=== PATIENT | female | born 1990 | race Caucasian/White ===

== ENCOUNTER 2017-11-27 08:00 | Outpatient (CLI) | payer OTHER ==
[2017-11-27 14:52] LABS: MUDS CUTOFF CONCENTRATIONS CUTOFF CONC BELOW:
[2017-11-27 15:16] LABS: AMPHETAMINE SCREEN,URINE NEGATIVE (NEGATIVE); BENZODIAZEPINES SCREEN, URINE NEGATIVE (NEGATIVE); COCAINE SCREEN URINE NEGATIVE (NEGATIVE); METHADONE SCREEN, URINE NEGATIVE (NEGATIVE); METHAMPHETAMINES SCREEN, URINE NEGATIVE (NEGATIVE); OPIATE SCREEN, URINE NEGATIVE (NEGATIVE); OXYCODONE SCREEN, URINE NEGATIVE (NEGATIVE); PROPOXYPHENE SCREEN, URINE NEGATIVE (NEGATIVE); TRICYCLIC ANTIDEPRESSANT,URINE NEGATIVE (NEGATIVE)
== END 2017-11-27 08:01 | disposition home or self-care (01) ==
LOC: LAB.R 08:00
PROVIDERS: ATTEND Obstetrics & Gynecology
DX: Z36.9 Encounter for antenatal screening, unspecified (principal)
CPT/HCPCS: 80306

== ENCOUNTER 2017-12-09 22:17 | Emergency (ER) | payer OTHER ==
--- NOTE | 2017-12-09 22:42 | ED Physician Documentation ---
History of Present Illness - Stated complaint Stated Complaint: FEMALE /8 WKS - Chief complaint Chief Complaint: Abd Pain - History obtained from History obtained from: Patient - Additonal information Additional information: 27-year-old female presents the emergency department with complaints of vaginal bleeding which developed this evening. The patient currently is 8 weeks . The patient's had light spotting recently and today had an episode of bright red bleeding. The bleeding subsequently has resolved. The patient denies abdominal pain. Symptoms are described as moderate. No other associated symptoms. No triggering factors. No relieving factors. No other associated symptoms. Review of Systems Constitutional: denies: Fever, Chills Eyes: denies: Discharge Ears: denies: Ear pain Nose: denies: Congestion Throat: denies: Sore throat Cardiac: denies: Chest pain / pressure Respiratory: denies: Cough GI: denies: Abdominal Pain : reports: Vaginal bleeding Skin: denies: Rash Musculoskeletal: denies: Neck pain Neurologic: denies: Generalized weakness Immunocompromised: denies: Chemotherapy PD PAST MEDICAL HISTORY - Present Medications Home Medications: Ambulatory Orders Medication Instructions Recorded Confirmed Pnv95/Ferrous Fumarate/FA 1 each PO 12/09/17 [ Formula] - Allergies Allergies/Adverse Reactions: Allergies Allergy/AdvReac Type Severity Reaction Status Date / Time No Known Drug Allergies Allergy Verified 12/09/17 22:25 PD ED PE NORMAL - General General: Alert and oriented X 3, No acute distress - HEENT HEENT: Atraumatic, PERRL, EOMI, Ears normal - Cardiac Cardiac: RRR - Respiratory Respiratory: No respiratory distress, Clear bilaterally - Abdomen Abdomen: Soft, Non tender, Non distended - Derm Derm: Normal color - Extremities Extremities: No deformity - Neuro Neuro: Alert and oriented X 3, Normal speech - Psych Psych: Normal affect Results - Vitals Vitals: Vital Signs - 24 hr 12/09/17 22:23 Temperature 37.1 C Heart Rate 75 Respiratory 16 Rate Blood Pressure 132/84 H O2 Saturation 100 Oxygen O2 Source Room air - Labs Labs: Laboratory Tests 12/09/17 12/09/17 12/09/17 22:28 22:45 22:45 WBC 9.8 RBC 4.95 Hgb 14.4 Hct 41.7 MCV 84.3 MCH 29.2 MCHC 34.6 RDW 13.0 Plt Count 244 MPV 6.4 L Neut # (Auto) 4.9 Lymph # (Auto) 3.6 H Cataño # (Auto) 0.9 Eos # (Auto) 0.2 Baso # (Auto) 0.1 Absolute Nucleated RBC 0.01 Nucleated RBC % 0.1 Sodium 137 Potassium 3.4 L Chloride 103 Carbon Dioxide 24 Anion Gap 10.0 BUN 13 Creatinine 0.7 Estimated GFR (MDRD) 99 Glucose 91 Calcium 9.4 Magnesium 2.0 Total Bilirubin 0.4 AST 25 ALT 18 Alkaline Phosphatase 79 Total Protein 7.7 Albumin 4.5 Globulin 3.2 Albumin/Globulin Ratio 1.4 Lipase 42 HCG, Quant Urine Color YELLOW Urine Clarity CLEAR Urine pH 6.0 Ur Specific [place] <=1.005 Urine Protein NEGATIVE Urine Glucose (UA) NEGATIVE Urine Ketones NEGATIVE Urine Occult Blood LARGE H Urine Nitrite NEGATIVE Urine Bilirubin NEGATIVE Urine Urobilinogen 0.2 (NORMAL) Ur Leukocyte Esterase NEGATIVE Urine RBC 0-5 Urine WBC 0-3 Ur Squamous Epith Cells FEW Squamous Urine Bacteria None Seen Ur Microscopic Review INDICATED Urine Culture Comments NOT INDICATED 12/09/17 22:45 WBC RBC Hgb Hct MCV MCH MCHC RDW Plt Count MPV Neut # (Auto) Lymph # (Auto) Cataño # (Auto) Eos # (Auto) Baso # (Auto) Absolute Nucleated RBC Nucleated RBC % Sodium Potassium Chloride Carbon Dioxide Anion Gap BUN Creatinine Estimated GFR (MDRD) Glucose Calcium Magnesium Total Bilirubin AST ALT Alkaline Phosphatase Total Protein Albumin Globulin Albumin/Globulin Ratio Lipase HCG, Quant 21958.00 Urine Color Urine Clarity Urine pH Ur Specific [place] Urine Protein Urine Glucose (UA) Urine Ketones Urine Occult Blood Urine Nitrite Urine Bilirubin Urine Urobilinogen Ur Leukocyte Esterase Urine RBC Urine WBC Ur Squamous Epith Cells Urine Bacteria Ur Microscopic Review Urine Culture Comments - Rads (name of study) OB first trimester ultrasound Radiology: Final report received (Impression: Intrauterine gestational sac with pole present. Absent heart rate motion and the fetus is measuring more than 1 week smaller than expected by report of outside ultrasound. Compatible with intrauterine demise and missed . Leila- gestational hemorrhage) PD MEDICAL DECISION MAKING - ED course ED course: I discussed the case with the on-call EXTRACTION SUPERVISOR Dr. Henao, he recommends outpatient follow-up and attempting a natural progression of a spontaneous . He recommends close follow-up in 2-3 days for reevaluation. On reevaluation the patient is resting comfortably, and currently is not having any lower abdominal pain and is only had slight be bleeding. I discussed with the patient the findings and plan. The patient understands and agrees. The patient has a OB/ SOCIAL SERVICES and will follow up in the next 2-3 days. I discussed warning signs and recommended returning to the emergency department immediately for any worsening or any concerns. - Sepsis Event Vital Signs: Vital Signs - 24 hr 12/09/17 22:23 Temperature 37.1 C Heart Rate 75 Respiratory 16 Rate Blood Pressure 132/84 H O2 Saturation 100 Oxygen O2 Source Room air Departure - Departure Disposition: 01 Home, Self Care Clinical Impression: Missed with demise before 20 completed weeks of gestation Condition: Good Instructions: ED Miscarriage Incom, ED Miscarriage Inevitable Comments: Please follow-up with your EXTRACTION SUPERVISOR in 2-3 days for recheck. Please return to the emergency department immediately for worsening symptoms or new concerns
[2017-12-09 22:49] LABS: BASOPHILS # (AUTO) 0.1 10^3/uL (0.0-0.1); BASOPHILS % (AUTO) 0.6 %; EOSINOPHILS # (AUTO) 0.2 10^3/uL (0.0-0.7); EOSINOPHILS % (AUTO) 2.3 %; HGB - HEMOGLOBIN 14.4 g/dL (12.0-16.0); LYMPHOCYTES # (AUTO) 3.6 10^3/uL (1.5-3.5); LYMPHOCYTES % (AUTO) 37.2 %; MEAN CORPUSCULAR HEMOGLOBIN 29.2 pg (27.0-31.0); MEAN CORPUSCULAR HGB CONC 34.6 g/dL (32.0-36.0); MEAN CORPUSCULAR VOLUME 84.3 fL (81.0-99.0); MEAN PLATELET VOLUME 6.4 fL (7.9-10.8); MONOCYTES # (AUTO) 0.9 10^3/uL (0.0-1.0); MONOCYTES % (AUTO) 9.3 %; NEUTROPHILS # (AUTO) 4.9 10^3/uL (1.5-6.6); NEUTROPHILS % (AUTO) 50.6 %; PLT - PLATELET COUNT 244 10^3/uL (130-450); RED BLOOD COUNT 4.95 10^6/uL (4.20-5.40); WHITE BLOOD COUNT 9.8 x10^3/uL (4.8-10.8)
[2017-12-09 22:50] LABS: BILIRUBIN,URINE NEGATIVE (NEGATIVE); GLUCOSE, URINE (UA) NEGATIVE (NEGATIVE); KETONES,URINE (UA) NEGATIVE (NEGATIVE); LEUKOCYTE ESTERASE, URINE NEGATIVE (NEGATIVE); NITRITE,URINE NEGATIVE (NEGATIVE); OCCULT BLOOD,URINE LARGE (NEGATIVE); PROTEIN,URINE NEGATIVE (NEGATIVE); UROBILINOGEN,URINE 0.2 (NORMAL) E.U./dL (NORMAL)
[2017-12-09 22:52] LABS: CLARITY,URINE CLEAR (CLEAR)
[2017-12-09 22:59] LABS: BACTERIA,URINE None Seen /HPF (None Seen); RBC,URINE 0-5 /HPF (0-5); SQUAMOUS EPITHELIAL CELL,UR FEW Squamous (<= Few)
[2017-12-09 23:00] LABS: ALBUMIN 4.5 g/dL (3.2-5.5); ALBUMIN/GLOBULIN RATIO 1.4 (1.0-2.2); BILIRUBIN,TOTAL 0.4 mg/dL (0.2-1.0); CALCIUM 9.4 mg/dL (8.5-10.3); CREATININE 0.7 mg/dL (0.4-1.0); TOTAL PROTEIN 7.7 g/dL (6.7-8.2)
--- NOTE | 2017-12-10 00:10 | Ultrasound Report ---
Procedure Date: 12/09/2017 Accession Number: [id number] / [id number] Procedure: US - OB First Trimester CPT Code: FULL RESULT: EXAM: FIRST TRIMESTER OBSTETRIC ULTRASOUND (Less than 11 weeks) EXAM DATE: 12/09/2017 10:53 PM. CLINICAL HISTORY: with pain. LMP: Unknown. COMPARISONS: None. TECHNIQUE: Transabdominal and transvaginal ultrasound examination with static image documentation. CLINICAL DATES: EGA 8 weeks 3 days with FARHAD 07/18/2018 based on patient's report of office ultrasound from 11/28/2017. ASSESSMENT: Gestational Sac: Single intrauterine. Mean gestational sac diameter: 25 mm = 7 weeks 1 day. Embryo: CRL (crown-rump length) 10.4 mm = 7 weeks 1 day. Cardiac activity: Absent. Yolk sac: 3 mm. Amniotic fluid: Not accurately assessed at this gestational age. Early placenta: Not visible at this gestational age. Other: Hemorrhage along the inferior margin of the gestational sac.. MATERNAL STRUCTURES: Uterus: Anteverted/Retroverted. Unremarkable. Cervix: Closed. Right Ovary/Adnexa: Right ovary not confidently identified. No right adnexal mass seen.. Left Ovary/Adnexa: Unremarkable. The ovary measures 1.6 x 1.5 x 1.1 cm, volume 1 cc. Free Fluid: None. Other: None. IMPRESSION: Intrauterine gestational sac, with pole present. Absent heart motion, and the fetus is measuring more than 1 week smaller than expected by report of outside ultrasound, compatible with intrauterine demise and missed . Perigestational hemorrhage. Critical result: Results called to Dr. Newman in the emergency Department on 12/10/2017 at 12:05 AM. VANESSA
[2017-12-10 00:44] VITALS: BP 128/80
--- NOTE | 2017-12-11 17:33 | HISTORY & PHYSICAL EXAMINATION ---
DATE OF SERVICE: 12/09/2017 Physician: Adrian Marie MD DIAGNOSES 1. Early embryonic wastage at 8 weeks. 2. Threatened /missed . HISTORY OF PRESENT ILLNESS: Patient is a 27-year-old 2, para 0-0-1-0 who on her initial obstetrics check was noted to have brown/pinkish discharge, but no cramping. She had none of the usual signs of such as breast tenderness, nausea, or vomiting. Formal ultrasound was accomplished that showed a gestational sac with a pole, but no heart tones. She has no fevers, chills or recent symptoms or recent illness. Seven years ago, she had an abnormal Pap smear that resolved spontaneously. There is a prior history of SAB. Current Pap smear is completely normal. Last menstrual period is 09/28/2017. PAST MEDICAL HISTORY: No cardiovascular or gastrointestinal disease, no chronic disease, no STI history. ALLERGIES: MEDICATIONS: vitamins. REVIEW OF SYSTEMS CONSTITUTIONAL: Negative. HEENT: Negative. CARDIOVASCULAR: Negative. PULMONARY: Negative. GASTROINTESTINAL: Negative. GENITOURINARY: Reference HPI. MUSCULOSKELETAL: Negative. DERMATOLOGIC: Negative. BREASTS: Negative. NEUROLOGIC: Negative. PSYCHIATRIC: Negative. SOCIAL HISTORY: Currently . in active duty [employer]. No drug, tobacco, or alcohol use. Regular exercise. Works as a storehouse clerk. FAMILY HISTORY: MOTOR VEHICLE ESCORT DRIVER malignancy. No CVA or OH history. PHYSICAL EXAMINATION GENERAL: Well groomed, pleasant. VITAL SIGNS: Weight 147, height 65, BMI 24.5, blood pressure 116/76. HEENT: Supple neck. Dentition in good repair. No thyromegaly. CARDIAC: Regular. No murmur, no gallop. LUNGS: No wheeze. Clear lungs bilaterally. ABDOMEN: Nondistended. No tenderness noted. GENITOURINARY: Normal excretion. No vulvar lesions. VAGINA: Scant brownish discharge/old blood. CERVIX: No cervical motion tenderness. Os is stenotic and closed; laminaria small, was uneventfully placed. UTERUS: Gravid 8-week size. ADNEXA: Nontender. Normal size ovaries. EXTREMITIES: Nonedematous. NEUROLOGIC: Grossly intact. SKIN: No rash or lesions. DIAGNOSTIC DATA: Office ultrasound: Gestational sac found but no heart tones. Admission labs pending. ASSESSMENT: Patient has had an 8-week embryonic wastage and is currently passing bloody discharge. After a long discussion, patient has chosen dilatation and curettage for its expediency. Risks (bleeding, transfusion, infection, perforation and anesthesia reaction) were explained. She accepts these risks. Alternative courses of action including expectant management and misoprostol induction were discussed, but rejected. PLAN: Patient is scheduled for dilatation and curettage mid morning of the . TD: 12/11/2017 14:09 KASANDRA
== END 2017-12-10 00:42 | disposition home or self-care (01) ==
LOC: ED 22:17
DX: O02.1 Missed abortion (principal); Z3A.08 8 weeks gestation of pregnancy
CPT/HCPCS: 36415; 76801; 76817; 80053; 81001; 81003; 83690; 83735; 84702; 84703; 85025; 86850; 86900; 86901; 87086; 99283; 99284

== ENCOUNTER 2017-12-11 09:57 | Outpatient (CLI) | payer OTHER ==
[2017-12-11 10:50] LABS: BASOPHILS # (AUTO) 0.1 10^3/uL (0.0-0.1); BASOPHILS % (AUTO) 0.7 %; EOSINOPHILS # (AUTO) 0.1 10^3/uL (0.0-0.7); EOSINOPHILS % (AUTO) 1.1 %; HGB - HEMOGLOBIN 15.1 g/dL (12.0-16.0); LYMPHOCYTES % (AUTO) 24.3 %; MEAN CORPUSCULAR HEMOGLOBIN 28.9 pg (27.0-31.0); MEAN CORPUSCULAR HGB CONC 34.4 g/dL (32.0-36.0); MEAN CORPUSCULAR VOLUME 84.2 fL (81.0-99.0); MEAN PLATELET VOLUME 6.5 fL (7.9-10.8); MONOCYTES # (AUTO) 0.6 10^3/uL (0.0-1.0); MONOCYTES % (AUTO) 7.9 %; NEUTROPHILS # (AUTO) 5.4 10^3/uL (1.5-6.6); PLT - PLATELET COUNT 225 10^3/uL (130-450); RED BLOOD COUNT 5.21 10^6/uL (4.20-5.40); RED CELL DISTRIBUTION WIDTH 13.1 % (12.0-15.0); WHITE BLOOD COUNT 8.2 x10^3/uL (4.8-10.8)
== END 2017-12-11 09:58 | disposition home or self-care (01) ==
LOC: LAB 09:57
PROVIDERS: ATTEND Obstetrics & Gynecology
DX: Z01.812 Encounter for preprocedural laboratory examination (principal); O03.4 Incomplete spontaneous abortion without complication
CPT/HCPCS: 36415; 85025; 86850; 86900; 86901

== ENCOUNTER 2017-12-12 08:46 | Day surgery (SDC) | payer OTHER ==
[2017-12-12] MEDS ORDERED: LACTATED RINGERS 1,000 ML IV ONE (08:58)
--- NOTE | 2017-12-12 09:33 | ANESTHESIA ---
Pre-Anesthesia VS, & Labs - Diagnosis Incomplete AB - Procedure D&C Vital Signs: Temp Pulse Resp BP Pulse Ox 37.0 C 16 122/94 H 100 12/12/17 09:05 12/12/17 09:05 12/12/17 09:05 12/12/17 09:05 Height 5 ft 6 in Weight (kg) 67 kg Body Mass Index 23.3 - NPO >8 hours - Is Patient ?: Yes ( demise determined by US on 12/09/17) - Lab Results Lab results reviewed: Yes Home Medications and Allergies Home Medications: Ambulatory Orders Medication Instructions Recorded Confirmed Pnv95/Ferrous Fumarate/FA 1 each PO 12/09/17 [ Formula] Allergies/Adverse Reactions: Allergies Allergy/AdvReac Type Severity Reaction Status Date / Time No Known Drug Allergies Allergy Verified 12/09/17 22:25 Anes History & Medical History - Anesthetic History Anesthesia Complications: reports: No previous complications Family history of Anesthesia Complications: Denies Family history of Malignant Hyperthermia: Denies - Airway/Dental Dental: WNL Mallampati classification: I - Medical History Cardiovascular: reports: None Pulmonary: reports: None Gastrointestinal: reports: None Urinary: reports: None Musculoskeletal: reports: None Endocrine/Autoimmune: reports: None Skin: reports: None Smoking Status: Never smoker - Surgical History Gynecologic: Dilation and currettage Exam General: Alert, Oriented x3 Respiratory: Lungs clear, Normal breath sounds, No respiratory distress Cardiovascular: Regular rate Mental/Cognitive Status: Alert/Oriented X3 Cognitive Status: Within normal limits Plan Anesthesia Type: General Consent for Procedure(s) Verified and Reviewed: Yes Code Status: Attempt Resuscitation ASA classification: 1-Healthy patient Is this case an emergency?: No
--- NOTE | 2017-12-12 09:40 | OPERATIVE REPORT ---
Operative Report - General Planned Procedure: Dilatation and curettage possibly with suction Pre-Op Diagnosis: Spontaneous early wastage; Procedure Performed: Dilatation and curettage Post Op Diagnosis: Same as above - Procedure Note Primary Surgeon: Adrian Marie MD, FACOG Anesthesia Provider: Elliot Lowe, certified nurse classics professor Anesthesia Technique: General ET tube Pathology: Conceptual products sent to pathology IV Fluids (mL): 500 Estimated Blood Loss (mL): 20 Urine Output (mL): 100 (straight cath) Drain/Tube Type: Other (None, patient straight cathed during procedure) Complications: None
[2017-12-12] MEDS ORDERED: fentaNYL 100 MCG/2 ML VIAL IVP ONE (10:15)
[2017-12-12] MEDS ORDERED: DEXAMETHASONE 4 MG/ML VIAL IVP ONE (10:15)
[2017-12-12] MEDS ORDERED: PROPOFOL 200 MG/20 ML VIAL IVP ONE (10:15)
[2017-12-12] MEDS ORDERED: ONDANSETRON 4 MG/2 ML VIAL IVP ONE (10:15)
[2017-12-12] MEDS ORDERED: MIDAZOLAM 2 MG/2 ML VIAL IVP ONE (10:15)
[2017-12-12] MEDS ORDERED: KETOROLAC 30 MG/ML VIAL IVP ONE (10:15)
[2017-12-12] MEDS ORDERED: LIDOCAINE-MPF 2% 5 ML VIAL IM ONE (10:15)
[2017-12-12 12:03] VITALS: BP 118/88
--- NOTE | 2017-12-12 12:08 | OPERATIVE REPORT ---
DATE OF SERVICE: 12/12/2017 Physician: Adrian Marie MD PREOPERATIVE DIAGNOSIS: Spontaneous early embryonic wastage (8 weeks); missed ). POSTOPERATIVE DIAGNOSIS: Spontaneous early embryonic wastage (8 weeks); missed . PROCEDURE PERFORMED: Dilatation and curettage, with and without suction. SURGEON: Adrian Marie MD, FACOG, FICS. ANESTHESIA: Elliot Lowe CRNA. ANESTHESIA TYPE: General, ET tube placed. PATHOLOGY: Conceptual products sent for analysis. FLUIDS: 500. ESTIMATED BLOOD LOSS: 20. URINE OUTPUT: 100, patient straight-catheterized of clear urine at the beginning of the case. DRAINS: None. COMPLICATIONS: None. FINDINGS 1. Exam of the external genitalia finds no lesions. Vagina is without gross lesions. Cervix has no cervicitis or gross lesions. Cervical dilation had changed from nil to 4-5 mm with the effect of la minaria; laminaria removed. 2. Uterus about 8-week size, soft, retroverted, retroflexed, uterine sounding 8 cm preop and postop. 3. Adnexa, no masses felt. Normal size ovaries. TECHNIQUE: Prior to the procedure, I met the patient and her in the preop waiting room. We reviewed the indications, mechanics, risks (bleeding, infection, transfusion, perforation, and incomp lete evacuation). After discussion, she is certain that she desires to move forward with the procedu re. DESCRIPTION OF PROCEDURE: The patient was placed on the operating table in the supine position. She was uneventfully induced and intubated. She was then moved to the low dorsal lithotomy position in [facility]. She was prepped and draped in a customary sterile fashion. The laminaria was rem cassia. The patient was straight-catheterized of all urine. A timeout briefing was done per protocol. Clamshell speculum was then used to visualize the cervix. The anterior cervical lip was grasped with a single-tooth tenaculum. The patient was sounded to determine endocervical axis. The cervix was t hen gently dilated with serial application of Hegar probes to #10. Suction curette was calibrated, and vacuum activated. The suction curette was introduced into the ut erine cavity, and manipulated in a systematic fashion. The expected amount of uterine products was o btained. The suction curette was removed. Next, a medium sized sharp curette was introduced, and it was confirmed that the uterine cavity was empty. Procedure was terminated. All instruments were removed from the vagina. The operative site was insp ected and found to be hemostatically secure. All sponge, needle and instrument counts were confirmed as correct. The patient was uneventfully awakened from general anesthesia and sent to the recovery. DISPOSITION: Patient blood type is O+, antibody screen negative. Therefore, RhoGAM will not be requ ired. The patient recovered and was sent home with complete warning sign and callback instructions. DISCHARGE MEDICATIONS 1. Motrin 600 mg q. 6 hours [id number]. 2. Continue vitamins. 3. The patient will call in if narcotic is required. FOLLOWUP: In two weeks. TD: 12/12/2017 11:03
== END 2017-12-12 08:47 | disposition home or self-care (01) ==
LOC: SDS 08:46
PROVIDERS: ATTEND Obstetrics & Gynecology
PROC: 10D17Z9 Manual Extraction of Products of Conception, Retained, Via Natural or Artificial Opening (ICD-10-PCS; principal; 2017-12-12 10:00)
DX: O02.1 Missed abortion (principal)
CPT/HCPCS: 59820; J7120

== ENCOUNTER 2018-09-13 08:58 | Outpatient (CLI) | payer OTHER ==
--- NOTE | 2018-09-14 17:06 | Ultrasound Report ---
Reason: TEST POSITIVE Procedure Date: 09/13/2018 Accession Number: [id number] / [id number] Procedure: US - OB First Trimester CPT Code: FULL RESULT: EXAM: FIRST TRIMESTER OBSTETRIC ULTRASOUND (Less than 11 weeks) EXAM DATE: 09/13/2018 09:30 AM. CLINICAL HISTORY: test positive. LMP: 07/19/2018. COMPARISONS: None. TECHNIQUE: Transabdominal ultrasound examination with static image documentation. CLINICAL DATES: EGA 8 weeks 0 days with FARHAD 04/25/2019 based on LMP. ASSESSMENT: Gestational Sac: Single intrauterine. Embryo: CRL (crown-rump length) 12 mm = 7 weeks 3 days with an FARHAD of 04/29/2019. Cardiac activity: 161 beats per minute. Yolk sac: 3 mm. Amniotic fluid: Not accurately assessed at this gestational age. Early placenta: Not visible at this gestational age. Other: No perigestational fluid collection demonstrated. MATERNAL STRUCTURES: Uterus: Anteverted. Unremarkable. Cervix: Closed. Right Ovary/Adnexa: The ovary measures 2.8 x 1.1 x 2.1 cm, volume 3.5 cc. Unremarkable. Left Ovary/Adnexa: The ovary measures 4.1 x 2.6 x 3.5 cm, volume 19.2 cc. 2 x 1.7 x 2.2 Cm complex left ovarian cyst with debris and mild peripheral flow. No mural nodules or thickened septations. Free Fluid: None. Other: None. IMPRESSION: 1. Single viable intrauterine at EGA 7 weeks 3 days with FARHAD 04/29/2019 based on crown-rump length, which is concordant with clinical dates. 2. Assigned dating is FARHAD 8 weeks 0 days based on LMP. 3. No subchorionic hemorrhage or other complication. 4. 2.2 cm complex left ovarian cyst most compatible with a corpus luteum. Otherwise, both ovaries and adnexa are normal. RADIA
== END 2018-09-13 08:59 | disposition home or self-care (01) ==
LOC: DI 08:58
PROVIDERS: ATTEND Nurse Practitioner Obstetrics & Gynecology
DX: Z32.01 Encounter for pregnancy test, result positive (principal); O34.81 Maternal care for other abnormalities of pelvic organs, first trimester; N83.292 Other ovarian cyst, left side; Z3A.01 Less than 8 weeks gestation of pregnancy
CPT/HCPCS: 76801

== ENCOUNTER 2018-10-01 08:00 | Outpatient (CLI) | payer OTHER ==
[2018-10-01 16:31] LABS: MUDS CUTOFF CONCENTRATIONS CUTOFF CONC BELOW:
[2018-10-01 16:59] LABS: AMPHETAMINE SCREEN,URINE NEGATIVE (NEGATIVE); BENZODIAZEPINES SCREEN, URINE NEGATIVE (NEGATIVE); COCAINE SCREEN URINE NEGATIVE (NEGATIVE); METHADONE SCREEN, URINE NEGATIVE (NEGATIVE); METHAMPHETAMINES SCREEN, URINE NEGATIVE (NEGATIVE); OPIATE SCREEN, URINE NEGATIVE (NEGATIVE); OXYCODONE SCREEN, URINE NEGATIVE (NEGATIVE); PROPOXYPHENE SCREEN, URINE NEGATIVE (NEGATIVE); TRICYCLIC ANTIDEPRESSANT,URINE NEGATIVE (NEGATIVE)
== END 2018-10-01 23:59 | disposition home or self-care (01) ==
LOC: LAB.R 08:00
PROVIDERS: ATTEND Registered Nurse
DX: Z36.89 Encounter for other specified antenatal screening (principal)
CPT/HCPCS: 80306

== ENCOUNTER 2018-10-01 09:49 | Outpatient (CLI) | payer OTHER ==
[2018-10-01 10:44] LABS: MUDS CUTOFF CONCENTRATIONS CUTOFF CONC BELOW:
[2018-10-01 11:05] LABS: AMPHETAMINE SCREEN,URINE NEGATIVE (NEGATIVE); BENZODIAZEPINES SCREEN, URINE NEGATIVE (NEGATIVE); COCAINE SCREEN URINE NEGATIVE (NEGATIVE); METHADONE SCREEN, URINE NEGATIVE (NEGATIVE); METHAMPHETAMINES SCREEN, URINE NEGATIVE (NEGATIVE); OPIATE SCREEN, URINE NEGATIVE (NEGATIVE); OXYCODONE SCREEN, URINE NEGATIVE (NEGATIVE); PROPOXYPHENE SCREEN, URINE NEGATIVE (NEGATIVE); TRICYCLIC ANTIDEPRESSANT,URINE NEGATIVE (NEGATIVE)
[2018-10-02 13:06] LABS: HIV AG/AB 4TH GEN NON-REACTIVE (NON-REACTIVE)
[2018-10-02 13:31] LABS: HEPATITIS C ANTIBODY NON-REACTIVE (NON-REACTIVE)
== END 2018-10-01 09:50 | disposition home or self-care (01) ==
LOC: LAB 09:49
PROVIDERS: ATTEND Registered Nurse
DX: Z36.89 Encounter for other specified antenatal screening (principal)
CPT/HCPCS: 36415; 80306; 86803; 87389

== ENCOUNTER 2018-12-05 08:21 | Outpatient (CLI) | payer OTHER ==
--- NOTE | 2018-12-06 16:33 | Ultrasound Report ---
Reason: ENCTR FOR OTHER SPECIFIED SCREENING Procedure Date: 12/05/2018 Accession Number: [id number] / [id number] Procedure: US - OB Detailed Eval CPT Code: FULL RESULT: EXAM: COMPLETE OBSTETRICAL ULTRASOUND EXAM DATE: 12/05/2018 10:25 AM. CLINICAL HISTORY: anatomic survey. COMPARISON: OB FIRST TRIMESTER 09/13/2018 9:12 AM. TECHNIQUE: Real-time sonographic evaluation of the fetus performed by the veterinarian laboratory animal care. Multiple field representative static images were saved for review. DATING: Established EGA 19 weeks, 6 days with FARHAD 12 [id number] based on first ultrasound. EGA weeks/days with FARHAD based on LMP/prior ultrasound/other. EGA 20 weeks, 3 days with FARHAD 04/21/2019 based on the current ultrasound. GENERAL EVALUATION Walker . Cardiac activity: 163 bpm. movement: Visualized. Presentation: Cephalic. Placenta: Anterior position. No evidence for previa. Umbilical cord: 3 vessel cord. Central placental cord origin. Amniotic fluid: Subjectively normal. MVP 3.2 cm. KAREY 11.1 cm. BIOMETRY Bi-Parietal Diameter (BPD): 4.8 cm, 20 weeks, 4 days Head Circumference (HC): 18 cm, 20 weeks, 3 days Abdominal Circumference (AC): 15.6 cm, 20 weeks, 5 days Femur Length (FL): 3.3 cm, 20 weeks, 1 day Estimated Weight: 356 g, 80th percentile for 19 weeks, 6 days. ANATOMY The intracranial structures, profile, face/nose/lips, spine, 4 chamber heart and outflow tracts, stomach, abdominal wall and cord insertion, diaphragm, kidneys, bladder, and extremities were visualized and demonstrate no abnormality. MATERNAL STRUCTURES Uterus: Unremarkable. Cervix: Long and closed. Transabdominal length 3.9 cm. Right ovary/adnexa: Unremarkable. Left ovary/adnexa: Unremarkable. Neither ovary was identified, the ovaries were presumably obscured by overlying bowel gas. Free fluid: None. IMPRESSION: 1. Walker live intrauterine with gestational age 19 weeks, 6 days based on first ultrasound. 2. Estimated weight at the 80th percentile is within expected limits for assigned dating. 3. Normal anatomic survey. No anatomic abnormalities are detected at this time. RADIA
== END 2018-12-05 08:22 | disposition home or self-care (01) ==
LOC: DI 08:21
PROVIDERS: ATTEND Nurse Practitioner Obstetrics & Gynecology
DX: Z36.89 Encounter for other specified antenatal screening (principal)
CPT/HCPCS: 76811

== ENCOUNTER 2018-12-20 10:49 | Outpatient (CLI) | payer OTHER ==
[2018-12-20 11:18] LABS: BASOPHILS % (AUTO) 0.3 %; EOSINOPHILS # (AUTO) 0.1 10^3/uL (0.0-0.7); EOSINOPHILS % (AUTO) 0.5 %; HGB - HEMOGLOBIN 12.6 g/dL (12.0-16.0); LYMPHOCYTES % (AUTO) 17.8 %; MEAN CORPUSCULAR HEMOGLOBIN 29.4 pg (27.0-31.0); MEAN CORPUSCULAR HGB CONC 34.2 g/dL (32.0-36.0); MEAN CORPUSCULAR VOLUME 85.8 fL (81.0-99.0); MEAN PLATELET VOLUME 8.7 fL (7.9-10.8); MONOCYTES # (AUTO) 0.7 10^3/uL (0.0-1.0); NEUTROPHILS # (AUTO) 8.3 10^3/uL (1.5-6.6); NEUTROPHILS % (AUTO) 74.5 %; PLT - PLATELET COUNT 209 10^3/uL (130-450); RED BLOOD COUNT 4.29 10^6/uL (4.20-5.40); RED CELL DISTRIBUTION WIDTH 13.3 % (12.0-15.0); WHITE BLOOD COUNT 11.2 x10^3/uL (4.8-10.8)
[2018-12-21 14:11] LABS: HEPATITIS B SURFACE ANTIGEN NON-REACTIVE (NON-REACTIVE)
[2018-12-23 14:51] LABS: HIV AG/AB 4TH GEN NON-REACTIVE (NON-REACTIVE)
== END 2018-12-20 10:50 | disposition home or self-care (01) ==
LOC: LAB 10:49
PROVIDERS: ATTEND Nurse Practitioner Obstetrics & Gynecology
DX: Z36.89 Encounter for other specified antenatal screening (principal)
CPT/HCPCS: 36415; 81599; 85025; 86592; 86762; 86850; 86900; 86901; 87340; 87389

== ENCOUNTER 2019-01-29 10:17 | Outpatient (CLI) | payer OTHER ==
[2019-01-29 11:26] LABS: HGB - HEMOGLOBIN 13.6 g/dL (12.0-16.0); MEAN CORPUSCULAR HEMOGLOBIN 29.1 pg (27.0-31.0); MEAN CORPUSCULAR HGB CONC 33.6 g/dL (32.0-36.0); MEAN CORPUSCULAR VOLUME 86.5 fL (81.0-99.0); MEAN PLATELET VOLUME 8.7 fL (7.9-10.8); RED BLOOD COUNT 4.68 10^6/uL (4.20-5.40); RED CELL DISTRIBUTION WIDTH 13.3 % (12.0-15.0); WHITE BLOOD COUNT 11.5 x10^3/uL (4.8-10.8)
== END 2019-01-29 10:18 | disposition home or self-care (01) ==
LOC: LAB 10:17
PROVIDERS: ATTEND Obstetrics & Gynecology
DX: Z36.89 Encounter for other specified antenatal screening (principal)
CPT/HCPCS: 36415; 82950; 85027; 86850

== ENCOUNTER 2019-04-02 08:00 | Outpatient (CLI) | payer OTHER ==
[2019-04-02 20:59] LABS: TRICHOMONAS VAGINALIS DNA NEGATIVE (NEGATIVE)
== END 2019-04-02 23:59 | disposition home or self-care (01) ==
LOC: LAB.R 08:00
PROVIDERS: ATTEND Nurse Practitioner Obstetrics & Gynecology
DX: Z36.85 Encounter for antenatal screening for Streptococcus B (principal)
CPT/HCPCS: 87491; 87591; 87661; 87797

== ENCOUNTER 2019-04-30 04:19 | Inpatient (IN) | payer OTHER ==
[2019-04-30] MEDS ORDERED: SODIUM CHLORIDE FLUSH 0.9% 10 ML SYRINGE IVP PRN ×2 (04:57→18:11)
[2019-04-30] MEDS ORDERED: fentaNYL 100 MCG/2 ML VIAL IVP PRN (04:57)
[2019-04-30] MEDS ORDERED: OXYTOCIN/DEXTROSE 5 % 30 UNIT/500 ML BAG IV ONE (05:14)
[2019-04-30 05:36] LABS: BASOPHILS # (AUTO) 0.1 10^3/uL (0.0-0.1); BASOPHILS % (AUTO) 0.4 %; EOSINOPHILS % (AUTO) 0.2 %; HGB - HEMOGLOBIN 13.1 g/dL (12.0-16.0); LYMPHOCYTES # (AUTO) 2.5 10^3/uL (1.5-3.5); LYMPHOCYTES % (AUTO) 14.6 %; MEAN CORPUSCULAR HEMOGLOBIN 28.5 pg (27.0-31.0); MEAN CORPUSCULAR HGB CONC 33.7 g/dL (32.0-36.0); MEAN CORPUSCULAR VOLUME 84.6 fL (81.0-99.0); MEAN PLATELET VOLUME 9.6 fL (7.9-10.8); MONOCYTES # (AUTO) 1.3 10^3/uL (0.0-1.0); MONOCYTES % (AUTO) 7.2 %; NEUTROPHILS # (AUTO) 13.4 10^3/uL (1.5-6.6); NEUTROPHILS % (AUTO) 76.9 %; PLT - PLATELET COUNT 239 10^3/uL (130-450); RED CELL DISTRIBUTION WIDTH 13.2 % (12.0-15.0); WHITE BLOOD COUNT 17.4 x10^3/uL (4.8-10.8)
[2019-04-30] MEDS ORDERED: OXYTOCIN/DEXTROSE 5 % 30 UNIT/500 ML BAG IV PRN (05:52)
[2019-04-30] MEDS ORDERED: miSOPROStoL 200 MCG TABLET ONE (08:24)
[2019-04-30] MEDS ORDERED: LIDOCAINE-MPF 1% 30 ML VIAL ONE (08:24)
[2019-04-30] MEDS: LACTATED RINGERS 1,000 ML IV SCH ×2 (08:30→13:51)
[2019-04-30 08:58] LABS: ALBUMIN 3.2 g/dL (3.2-5.5); ALBUMIN/GLOBULIN RATIO 0.9 (1.0-2.2); BILIRUBIN,TOTAL 0.5 mg/dL (0.2-1.0); CALCIUM 9.4 mg/dL (8.5-10.3); CREATININE 0.8 mg/dL (0.4-1.0); TOTAL PROTEIN 6.9 g/dL (6.7-8.2)
[2019-04-30] MEDS ORDERED: OXYTOCIN/DEXTROSE 5 % 30 UNIT/500 ML BAG IV SCH ×2 (09:00→19:00)
[2019-04-30] MEDS ORDERED: SODIUM CHLORIDE FLUSH 0.9% 10 ML SYRINGE IVP SCH (09:00)
--- NOTE | 2019-04-30 10:11 | HISTORY & PHYSICAL EXAMINATION ---
DATE OF SERVICE: 04/30/2019 Physician: Katherine Dickinson MD CHIEF COMPLAINT: Labor. HISTORY OF PRESENT ILLNESS: The patient is a 28-year-old G3, P0 who presents with contractions that started yesterday around noon. They have become progressively more painful. At home, she was contra cting every 3-5 minutes. No leaking of water. She was having spotting that was sometimes red and so metimes brown. She was having good movement. REVIEW OF SYSTEMS: No headaches, visual changes, or change in swelling. She did have slight upper a bdominal pain that had been present throughout her third trimester and was unchanged. PAST MEDICAL HISTORY: Negative. PAST SURGICAL HISTORY: Dilation and curettage for an incomplete . SOCIAL HISTORY: No tobacco, alcohol or drug use. Her partner is [place]. FAMILY HISTORY: Without anesthesia complications. OBSTETRIC HISTORY: The patient has had a 5-week elective termination and an 8-week spontaneous abort ion requiring dilation and curettage. This has been uncomplicated. Her due date was 04/25 by last menstrual period, consistent with an 8-week ultrasound. She had a normal anatomy scan without previa. She is Rh positive and rubella immune, group B strep negative. Her Pap smear was no rmal, but she did have high-risk HPV, negative for types 16 and 18. She received her Tdap and influe nza vaccines. Her blood pressure on 04/22/2019 was 144/94. OBJECTIVE: The patient is afebrile with normal vital signs with the exception of her blood pressure. She has had elevated diastolic blood pressures in the low 90s. She is alert and smiling, in no kleber arent distress. We spoke for about 10 minutes without her exhibiting any signs of discomfort. Her a bdomen is soft, nontender, and nondistended. Her legs are without lower extremity edema. Her reflex es are 2+ bilateral patellar. Her vaginal exam on admission was 3 cm dilated. Her NST is category 1 . Her TOCO is every 3-10 minutes. IMPRESSION AND PLAN: A 28-year-old G3, P0 at 40 weeks and 5 days by LMP, consistent with an 8-week u ltrasound, who presents with spontaneous labor. At this point, she is not jordan very frequentl y, but with her being close to needing a post-dates induction of labor anyway, we will go ahead and a ugment rather than sending her home for further observation. We discussed the options of expectant m anagement versus breast pump versus IV oxytocin and she elects for IV oxytocin. She has an AGA fetus who is vertex and has a normal anatomy scan. Group B strep negative. Her HPV positive status requi res a Pap smear in September of 2019 as her Pap was normal and she did not have subtype 16 or 18. Postpart um issues: We will need to watch blood pressures. Otherwise, she is Rh positive, rubella immune, an d has received both Tdap and influenza vaccines. The patient has elevated blood pressures now that are more than 4 hours apart, which qualifies her as gestational hypertension. Her platelets were normal in the 200s. We will check a CMP and a urine p rotein:creatinine ratio. She is asymptomatic with normal vital signs and without edema. We will rem ain vigilant for signs of any developing preeclampsia. TD: 04/30/2019 08:35
[2019-04-30 10:33] LABS: CREATININE,URINE 45.1 mg/dL
[2019-04-30 10:35] LABS: TOTAL PROTEIN,URINE TIMED < 6 mg/dL
[2019-04-30] MEDS ORDERED: ROPIVACAINE 0.2% 200 MG/100 ML BAG EP ONE (12:55)
[2019-04-30] MEDS ORDERED: ROPIVACAINE 0.2% 200 MG/100 ML BAG EP PRN (13:10)
[2019-04-30] MEDS ORDERED: NALOXONE 0.4 MG/ML VIAL IVP PRN (13:10)
[2019-04-30] MEDS ORDERED: ONDANSETRON 4 MG/2 ML VIAL IVP PRN (13:10)
[2019-04-30] MEDS ORDERED: diphenhydrAMINE INJ 50 MG/ML VIAL IVP PRN (13:10)
[2019-04-30] MEDS ORDERED: METOCLOPRAMIDE 10 MG/2 ML VIAL IVP PRN (13:10)
[2019-04-30] MEDS ORDERED: NALBUPHINE 10 MG/ML AMP IVP PRN (13:10)
[2019-04-30] MEDS ORDERED: LACTATED RINGERS 500 ML IV ONE (13:10)
[2019-04-30] MEDS ORDERED: ePHEDrine 50 MG/ML VIAL IVP PRN (13:10)
--- NOTE | 2019-04-30 13:10 | ANESTHESIA ---
Pre-Anesthesia VS, & Labs - Diagnosis active labor/ IUP - Procedure Labor Epidural Vital Signs: Temp Pulse Resp BP Pulse Ox 36.4 C L 89 18 155/90 H 04/30/19 04:32 04/30/19 04:32 04/30/19 04:32 04/30/19 04:32 Height 5 ft 5 in Weight (kg) 81.647 kg Body Mass Index 23.3 - Is Patient ?: Yes - Lab Results Current Lab Results: Laboratory Tests 04/30/19 08:40: Sodium 135, Potassium 4.1, Chloride 104, Carbon Dioxide 20 L, Anion Gap 11.0, BUN 11, Creatinine 0.8, Estimated GFR (MDRD) 84 L, Glucose 96, Calcium 9.4, Total Bilirubin 0.5, AST 31, ALT 17, Alkaline Phosphatase 104, Tot al Protein 6.9, Albumin 3.2, Globulin 3.7, Albumin/Globulin Ratio 0.9 L 04/30/19 05:28: WBC 17.4 H, RBC 4.60, Hgb 13.1, Hct 38.9, MCV 84.6, MCH 28.5, MCHC 33.7, RDW 13.2, Plt Count 239, MPV 9.6, Neut # (Auto) 13.4 H, Lymph # (Auto) 2.5, [place] # (Auto) 1.3 H, Eos # (Auto) 0.0, Baso # (Auto) 0.1, Absolute Nucleated RBC 0.00, Nucleated RBC % 0.0 Fish Bones: 04/30/19 05:28 04/30/19 08:40 Home Medications and Allergies Active Medications Fentanyl (Fentanyl) 50 mcg IVP Q1H PRN PRN Reason: PAIN Lactated Ringer's (Lr) 1,000 mls @ 150 mls/hr IV .Q6H40M HIMA Last Infusion: 04/30/19 12:55 Dose: 150 mls/hr OXYTOCIN/DEXTROSE 5 % (Pitocin/Dextrose 5%) 30 unit in 500 mls @ 999 mls/hr IV PRN PRN; Protocol PRN Reason: POST- HEMORR PREVENTION OXYTOCIN/DEXTROSE 5 % (Pitocin/Dextrose 5%) 30 unit in 500 mls @ 1 mls/hr IV TITR HIMA; Protocol Last Titration: 04/30/19 10:00 Dose: 4 mls/hr Sodium Chloride (Normal Saline Flush 0.9%) 10 ml IVP PRN PRN PRN Reason: NEEDED PER PROVIDER ORDERS Sodium Chloride (Normal Saline Flush 0.9%) 10 ml IVP 0100,0900,1700 HIMA Last Admin: 04/30/19 08:30 Dose: 10 ml Pnv No.95/Ferrous Fum/Folic AC [ Formula] 1 each PO 12/09/17 Allergies/Adverse Reactions: Allergies Allergy/AdvReac Type Severity Reaction Status Date / Time No Known Drug Allergies Allergy Verified 12/09/17 22:25 Anes History & Medical History - Anesthetic History Anesthesia Complications: reports: No previous complications Family history of Anesthesia Complications: Denies Family history of Malignant Hyperthermia: Denies - Medical History Cardiovascular: reports: None Pulmonary: reports: None Gastrointestinal: reports: None Urinary: reports: None Neuro: reports: None Musculoskeletal: reports: None Endocrine/Autoimmune: reports: None Skin: reports: None Smoking Status: Never smoker Psychosocial: reports: No issues indicated - Surgical History Gynecologic: Dilation and currettage Exam General: Alert, Oriented x3, Cooperative, No acute distress Dental: WNL Mouth Openin Fingerbreadth Neck Mobility: Normal Mallampati classification: II Thyromental Distance: 4-6 cm Respiratory: Lungs clear, Normal breath sounds, No respiratory distress, No accessory muscle use Cardiovascular: Regular rate, Normal S1, Normal S2, No murmurs Abdomen: Normal bowel sounds, Soft, No tenderness, No hepatospenomegaly, No mas ses Extremities: No clubbing, No cyanosis, No edema, Normal pulses, No tend erness/swelling Neurological: Normal gait, Normal speech, Strength at 5/5 X4 ext, Normal tone, Sensation intact, Cranial nerves 3-12 NL, Reflexes 2+ Mental/Cognitive Status: Alert/Oriented X3, Normal for patient Cognitive Status: Within normal limits Plan Anesthesia Type: Epidural Consent for Procedure(s) Verified and Reviewed: Yes Code Status: Attempt Resuscitation ASA classification: 2-Mild systemic disease Is this case an emergency?: No
--- NOTE | 2019-04-30 13:16 | ANESTHESIA PROCEDURE NOTE ---
Diagnosis: active labor/ IUP Procedure: Labor Epidural Consent for Procedure(s) Verified and Reviewed: Yes Height and Weight: Height 5 ft 5 in Weight (kg) 81.647 kg Body Mass Index 23.3 Vital Signs: Temp Pulse Resp BP Pulse Ox 36.4 C L 89 18 155/90 H 04/30/19 04:32 04/30/19 04:32 04/30/19 04:32 04/30/19 04:32 Allergies No Known Drug Allergies Allergy (Verified 12/09/17 22:25) ASA classification: 2-Mild systemic disease Is this case an emergency?: No Anes. Monitoring and Equipment: Non-invasive BP, Pulse oximetery Anes. Procedure Start Time: 12:40 Procedure Notes: Patient requesting an epidural for labor pains. At the bed side at 1240. Pre procedure anesthesia evaluation done, consent signed, procedure with risks and benefits explained to the patient. She understand and agrees to proceed. Sterile prep with cholohexidine to the skin. LA SQ lidocain 1% 3ml. Successful epidural placement with first attempt. Negative test dose. Negative for both hem and CSF upon aspiration. LIdocain 1% bolus 5ml gives after negative aspiration. Patient reports relief. Patient tolerate the proceedure well. Pump started at intermittent bolus of 11ml ropivacain 0.2% every 50 minutes with PCEA demand dose of 4ml every 15 minutes
--- NOTE | 2019-04-30 14:24 | PROVIDER PROGRESS NOTE ---
Objective - Vital Signs/Intake & Output Intake & Output: Intake & Output 04/27/19 04/28/19 04/29/19 04/30/19 23:59 23:59 23:59 23:59 Intake Total 782.25 Output Total 76 Balance 706.25 - Lab Results Fish Bones: 04/30/19 05:28 04/30/19 08:40 Other Labs: Lab Results x24hrs 04/30/19 04/30/19 04/30/19 Range/Units 08:40 08:30 05:28 WBC 17.4 H (4.8-10.8) x10^3/uL RBC 4.60 (4.20-5.40) 10^6/uL Hgb 13.1 (12.0-16.0) g/dL Hct 38.9 (37.0-47.0) % MCV 84.6 (81.0-99.0) fL MCH 28.5 (27.0-31.0) pg MCHC 33.7 (32.0-36.0) g/dL RDW 13.2 (12.0-15.0) % Plt Count 239 (130-450) 10^3/uL MPV 9.6 (7.9-10.8) fL Neut # (Auto) 13.4 H (1.5-6.6) 10^3/uL Lymph # (Auto) 2.5 (1.5-3.5) 10^3/uL [place] # (Auto) 1.3 H (0.0-1.0) 10^3/uL Eos # (Auto) 0.0 (0.0-0.7) 10^3/uL Baso # (Auto) 0.1 (0.0-0.1) 10^3/uL Absolute Nucleated RBC 0.00 x10^3/uL Nucleated RBC % 0.0 /100WBC Sodium 135 (135-145) mmol/L Potassium 4.1 (3.5-5.0) mmol/L Chloride 104 (101-111) mmol/L Carbon Dioxide 20 L (21-32) mmol/L Anion Gap 11.0 (6-13) BUN 11 (6-20) mg/dL Creatinine 0.8 (0.4-1.0) mg/dL Estimated GFR (MDRD) 84 L (>89) Glucose 96 (70-100) mg/dL Calcium 9.4 (8.5-10.3) mg/dL Total Bilirubin 0.5 (0.2-1.0) mg/dL AST 31 (10-42) IU/L ALT 17 (10-60) IU/L Alkaline Phosphatase 104 (42-121) IU/L Total Protein 6.9 (6.7-8.2) g/dL Albumin 3.2 (3.2-5.5) g/dL Globulin 3.7 (2.1-4.2) g/dL Albumin/Globulin Ratio 0.9 L (1.0-2.2) Urine Creatinine 45.1 mg/dL Ur Total Protein Timed < 6 mg/dL Protein/Creatinin Ratio Not Reportable Assessment/Plan - Problem List (1) Active labor at term Impression: 28yo at 40w5d with active spontaneous labor. Great SVE change is now 8cm. Persistently category 1 NST. Has epidural for pain control. BPs normal after epidural but prior to it they were consistently elevated with DBP in 90s. One DBP of 101 while having 10/10 pain immediately prior to epidural. Normal P:C ratio and CMP. Will continue to obs for any developing preeclampsia. Anticipate .
[2019-04-30] MEDS ORDERED: MAGNESIUM HYDROXIDE 2,400 MG/30 ML UDC PO PRN (18:08)
[2019-04-30] MEDS ORDERED: WITCH HAZEL/GLYCERIN 1 PAD TOP PRN (18:08)
[2019-04-30] MEDS ORDERED: ONDANSETRON ODT 4 MG TABLET TL PRN (18:08)
[2019-04-30] MEDS: ACETAMINOPHEN 500 MG TABLET PO SCH (20:41)
[2019-04-30] MEDS: IBUPROFEN 600 MG TABLET PO SCH (20:42)
[2019-04-30] MEDS: HYDROCORTISONE 1% CREAM 28 GM TUBE PR PRN (20:43)
[2019-04-30] MEDS: DOCUSATE SODIUM 100 MG CAPSULE PO SCH (23:38)
[2019-04-30] MEDS: SIMETHICONE CHEW 80 MG TABLET PO SCH (23:39)
--- NOTE | 2019-05-01 01:51 | PROCEDURE REPORT ---
DATE OF SERVICE: 04/30/2019 Physician: Katherine Dickinson MD PREOPERATIVE DIAGNOSES 1. Intrauterine at 40 weeks 5 days. 2. Spontaneous labor at term. 3. Gestational hypertension. POSTOPERATIVE DIAGNOSES 1. Status post spontaneous vaginal delivery at term. 2. Gestational hypertension. PROCEDURE: Spontaneous vaginal delivery without complications. SURGEON: Katherine Dickinson MD. ESTIMATED BLOOD LOSS: 100 mL FINDINGS: Included a live born male, Apgars 8 at one minute and 9 at five minutes. Weight is pending. She had terminal meconium-stained fluid. She had a left vaginal sulcal laceration that was 1 inch from caudal to cranial and 2 cm deep. DESCRIPTION OF PROCEDURE: The patient was admitted with progressive cervical change. At admission her contractions spaced out; and because of this and because she was nearing post dates, we elected for augmentation with Pitocin. Her maximum Pitocin dose was 4 milliunits per minute. She received an epidural for pain control. She progressed to complete and began pushing. During the pushing, we had a significant change in heart tones. Prior to pushing, the baseline had been 130 with moderate long-term variability. Accelerations were present and decelerations were absent. With pushing, the patient immediately developed a wandering baseline. The baseline varied between 100-120 beats per minute. Moderate long-term variability was preserved throughout. The patient had variable decelerations while pushing with a flora of about 88 beats per minute. As she was making progress with descent and long-term variability was preserved, we did not need to pursue interventional delivery. She pushed for about 2 hours to deliver over an intact perineum. There was no nuchal cord. The shoulders and body were easily delivered. The baby was placed on mom's abdomen and was warmed, dried and stimulated. He was immediately vigorous. The umbilical cord was left pulsating until the placenta detached. It was clamped x2 and cut. Cord blood was obtained. The placenta was delivered with Valsalva. It was intact with a 3-vessel cord. Fundal massage yielded an immediately toned uterus that was 1 cm below the umbilicus. Inspection revealed the vaginal laceration, which was reapproximated with 2 interrupted sutures of 2-0 Vicryl. Fundal massage again revealed a firm uterus 1 cm below the umbilicus. Mom and baby are bonding well. There were no delivery complications. The patient's course will be remarkable for observing her for any development of preeclampsia. She did develop blood pressures in the low 100s while she was in pain and pushing. She did not have any severe range blood pressures. We will repeat preeclampsia blood work in the morning and make sure that she does not develop any headaches, visual changes, or upper abdominal pain. The patient was educated that she has high risk for hypertension throughout her life and she can mitigate this risk with a healthy diet, exercise and maintaining normal weight. TD: 04/30/2019 18:24 KASANDRA
[2019-05-01] MEDS: IBUPROFEN 600 MG TABLET PO SCH ×4 (03:00→23:01)
[2019-05-01] MEDS: ACETAMINOPHEN 500 MG TABLET PO SCH ×3 (05:09→23:02)
[2019-05-01 07:33] LABS: BASOPHILS # (AUTO) 0.1 10^3/uL (0.0-0.1); BASOPHILS % (AUTO) 0.4 %; EOSINOPHILS % (AUTO) 0.2 %; HGB - HEMOGLOBIN 12.6 g/dL (12.0-16.0); LYMPHOCYTES % (AUTO) 9.7 %; MEAN CORPUSCULAR HEMOGLOBIN 28.4 pg (27.0-31.0); MEAN CORPUSCULAR HGB CONC 32.6 g/dL (32.0-36.0); MEAN CORPUSCULAR VOLUME 86.9 fL (81.0-99.0); MEAN PLATELET VOLUME 9.5 fL (7.9-10.8); MONOCYTES # (AUTO) 1.6 10^3/uL (0.0-1.0); MONOCYTES % (AUTO) 7.6 %; NEUTROPHILS # (AUTO) 16.7 10^3/uL (1.5-6.6); NEUTROPHILS % (AUTO) 81.4 %; PLT - PLATELET COUNT 182 10^3/uL (130-450); RED BLOOD COUNT 4.44 10^6/uL (4.20-5.40); RED CELL DISTRIBUTION WIDTH 13.5 % (12.0-15.0); WHITE BLOOD COUNT 20.5 x10^3/uL (4.8-10.8)
[2019-05-01 07:48] LABS: ALBUMIN 2.7 g/dL (3.2-5.5); ALBUMIN/GLOBULIN RATIO 0.8 (1.0-2.2); BILIRUBIN,TOTAL 0.7 mg/dL (0.2-1.0); CALCIUM 8.8 mg/dL (8.5-10.3); CREATININE 0.8 mg/dL (0.4-1.0)
[2019-05-01 07:56] LABS: RBC MORPHOLOGY (MULTIPLE) 1+ ANISOCYTOSIS (NORMAL)
--- NOTE | 2019-05-01 08:07 | PROVIDER PROGRESS NOTE ---
Objective - Vital Signs/Intake & Output Vital Signs: Vital Signs x48h Temp Pulse Resp BP Pulse Ox 05/01/19 04:00 98.2 F 67 16 113/88 H 96 05/01/19 01:19 98.0 F 74 18 140/78 H 100 Intake & Output: Intake & Output 04/28/19 04/29/19 04/30/19 05/01/19 23:59 23:59 23:59 23:59 Intake Total 4763.25 200 Output Total 2227 1400 Balance 2536.25 -1200 - Lab Results Fish Bones: 05/01/19 07:22 05/01/19 07:22 Other Labs: Lab Results x24hrs 05/01/19 05/01/19 04/30/19 Range/Units 07:22 07:22 08:40 WBC 20.5 H (4.8-10.8) x10^3/uL RBC 4.44 (4.20-5.40) 10^6/uL Hgb 12.6 (12.0-16.0) g/dL Hct 38.6 (37.0-47.0) % MCV 86.9 (81.0-99.0) fL MCH 28.4 (27.0-31.0) pg MCHC 32.6 (32.0-36.0) g/dL RDW 13.5 (12.0-15.0) % Plt Count 182 (130-450) 10^3/uL MPV 9.5 (7.9-10.8) fL Neut # (Auto) 16.7 H (1.5-6.6) 10^3/uL Lymph # (Auto) 2.0 (1.5-3.5) 10^3/uL [place] # (Auto) 1.6 H (0.0-1.0) 10^3/uL Eos # (Auto) 0.0 (0.0-0.7) 10^3/uL Baso # (Auto) 0.1 (0.0-0.1) 10^3/uL Absolute Nucleated RBC 0.00 x10^3/uL Nucleated RBC % 0.0 /100WBC Manual Slide Review Indicated RBC Morph Micro Appear 1+ ANISOCYTOSIS (NORMAL) Sodium 137 135 (135-145) mmol/L Potassium 4.0 4.1 (3.5-5.0) mmol/L Chloride 105 104 (101-111) mmol/L Carbon Dioxide 23 20 L (21-32) mmol/L Anion Gap 9.0 11.0 (6-13) BUN 8 11 (6-20) mg/dL Creatinine 0.8 0.8 (0.4-1.0) mg/dL Estimated GFR (MDRD) 84 L 84 L (>89) Glucose 85 96 (70-100) mg/dL Calcium 8.8 9.4 (8.5-10.3) mg/dL Total Bilirubin 0.7 0.5 (0.2-1.0) mg/dL AST 37 31 (10-42) IU/L ALT 14 17 (10-60) IU/L Alkaline Phosphatase 88 104 (42-121) IU/L Total Protein 6.0 L 6.9 (6.7-8.2) g/dL Albumin 2.7 L 3.2 (3.2-5.5) g/dL Globulin 3.3 3.7 (2.1-4.2) g/dL Albumin/Globulin Ratio 0.8 L 0.9 L (1.0-2.2) Urine Creatinine mg/dL Ur Total Protein Timed mg/dL Protein/Creatinin Ratio 04/30/ Range/Units 08:30 WBC (4.8-10.8) x10^3/uL RBC (4.20-5.40) 10^6/uL Hgb (12.0-16.0) g/dL Hct (37.0-47.0) % MCV (81.0-99.0) fL MCH (27.0-31.0) pg MCHC (32.0-36.0) g/dL RDW (12.0-15.0) % Plt Count (130-450) 10^3/uL MPV (7.9-10.8) fL Neut # (Auto) (1.5-6.6) 10^3/uL Lymph # (Auto) (1.5-3.5) 10^3/uL [place] # (Auto) (0.0-1.0) 10^3/uL Eos # (Auto) (0.0-0.7) 10^3/uL Baso # (Auto) (0.0-0.1) 10^3/uL Absolute Nucleated RBC x10^3/uL Nucleated RBC % /100WBC Manual Slide Review RBC Morph Micro Appear (NORMAL) Sodium (135-145) mmol/L Potassium (3.5-5.0) mmol/L Chloride (101-111) mmol/L Carbon Dioxide (21-32) mmol/L Anion Gap (6-13) BUN (6-20) mg/dL Creatinine (0.4-1.0) mg/dL Estimated GFR (MDRD) (>89) Glucose (70-100) mg/dL Calcium (8.5-10.3) mg/dL Total Bilirubin (0.2-1.0) mg/dL AST (10-42) IU/L ALT (10-60) IU/L Alkaline Phosphatase (42-121) IU/L Total Protein (6.7-8.2) g/dL Albumin (3.2-5.5) g/dL Globulin (2.1-4.2) g/dL Albumin/Globulin Ratio (1.0-2.2) Urine Creatinine 45.1 mg/dL Ur Total Protein Timed < 6 mg/dL Protein/Creatinin Ratio Not Reportable Assessment/Plan - Problem List (2) Spontaneous vaginal delivery Impression: Eat, ambulate, urinate, breastfeed well. No severe pain. VB like a heavy period. No ZUNIGA, visual changes, or upper abd pain. AVSS except for 2 systolic BP of 140 Alert, smiling, cuddling, NAD Abd soft, nt/nd Fundus firm, NT, at U 1+ non pitting edema bilateral ankle Normal plts, AST, ALT, Cr. WBC 20. 28yo P1 PPD #1 s/p at term. Doing well. Gestational HTN: BPs improved after , no sx, normal bloodwork. Continue to obs for any development of preeclampsia WBC 20, was 17 on admit. Pt not feeling "sick", afebrile, normal HR, nontender uterus. Pt will let us know if she starts to feel "sick". Otherwise anticipate normal PP course.
[2019-05-01] MEDS: DOCUSATE SODIUM 100 MG CAPSULE PO SCH ×2 (10:06→23:02)
[2019-05-01] MEDS: SIMETHICONE CHEW 80 MG TABLET PO SCH (10:07)
[2019-05-02] MEDS: IBUPROFEN 600 MG TABLET PO SCH (05:22)
[2019-05-02 07:31] VITALS: BP 125/90
[2019-05-02] MEDS: ACETAMINOPHEN 500 MG TABLET PO SCH (11:48)
[2019-05-02] MEDS: DOCUSATE SODIUM 100 MG CAPSULE PO SCH (11:48)
[2019-05-02] MEDS: HYDROCORTISONE 1% CREAM 28 GM TUBE PR PRN (11:48)
--- NOTE | 2019-05-02 16:44 | Labor Flowsheet ---
Labor Flowsheet Datetime Report Generated by CPN: 05/02/2019 16:44 Datetime: 05/01/2019 15:49 VITAL SIGNS NBP Sys/Eugenie/Mean (mmHg): 119 : 77 : 87 Pulse: 77 SpO2 (%): 99 Datetime: 04/30/2019 17:45 LaborFlag: Labor Datetime: 04/30/2019 17:44 UTERINE ACTIVITY Monitor Mode: External Frequency (min): 2-2.5 Quality: Strong Duration (sec): 80-100 Resting Tone (Palpate): Relaxed ASSESSMENT A Monitor Mode: Telemetry FHR Baseline Rate : 120 Variability: Moderate 6-25 bpm Accelerations: None Decelerations: Variable; Prolonged Actions for Decelerations: Oxygen Applied Category: Category II Comments: Prolonged decels, variable decels, changing positions, O2 at 10L.mask. of a viable m greg . Oxygen Amount (LPM): 10 Oxygen Method: Face Mask Datetime: 04/30/2019 17:38 Pushing Progress: Descent with Pushing; Perineal Bulging; Rectal Bulging; Presenting Part Visible; with Pushing; Pushing Effectively with Contractions Datetime: 04/30/2019 17:33 Patient Position/Activity: Right Lateral Datetime: 04/30/2019 17:20 Patient Care Comments: welchers Pushing Position: Pushing with Contractions Stage 2 Comments: Welchers position Datetime: 04/30/2019 17:00 Respirations: 24 Temperature (C): 36.7 Datetime: 04/30/2019 16:22 I/O Interventions: Steiner Discontinued Datetime: 04/30/2019 16:15 Monitor Interventions for FHR: Ultrasound Adjusted Datetime: 04/30/2019 16:05 VAGINAL EXAM Dilatation (cm): 10.0 Effacement (%): 100 Station: 1 Exam by: T Carlos RNC Vaginal Bleeding: Normal Show Cervix, Position: Anterior STAGE 2 Pushing: Coached on Pushing; Urge to Push Datetime: 04/30/2019 15:49 COMMUNICATION Communication: Provider at Bedside Provider Notified (Name): Dr Dickinson updated. Communication Comments: On the unit. Datetime: 04/30/2019 15:43 Procedures: Sterile Vag Exam Hygiene: Leila Care Datetime: 04/30/2019 14:59 PAIN Pain Scale: 0 Pain Presence: None/Denies Pain Type: N/A Anesthesia Level Check: T9 Datetime: 04/30/2019 14:30 Contraction Comments: Sutherlin not capturing contractions well Datetime: 04/30/2019 14:00 Monitor Interventions for UA: [place]lin Adjusted Datetime: 04/30/2019 13:52 PATIENT CARE IV/Blood Work: New IV Bag Hung; IV Bag Number @ 2 Datetime: 04/30/2019 13:30 Pattern: Normal: <= 5 Contractions in 10 Minutes Datetime: 04/30/2019 13:20 Cervix, Consistency: Soft Vaginal Exam Comments: can still feel a bag of water Datetime: 04/30/2019 13:01 Epidural Procedure Other: Pump Started Anesthesia Comments: intermittant bolus per pump with PCEA set for every 15 minutes Datetime: 04/30/2019 12:53 Epidural Procedure: Loading Dose Datetime: 04/30/2019 12:40 PROCEDURE TIME OUT Procedure Verify: Correct Patient Identity; Accurate Procedure Consent Form; Agreement on Procedure to be Done; Correct Patient Position; Safety Precautions Based on Patient History or Medication Use ANESTHESIA Anesthesia Plans: Epidural Epidural Positioning: Sitting Datetime: 04/30/2019 11:15 Pain Location: Abdomen; Back Pain Relief Measures: Comfort Measures Pain Coping: Breathing Through Contractions; Other Pain Assessment Comments: Encouraged pelvic rocks or hands and knees for back pain. Given a peanut ball if she wants to try extreme lateral position with peanut ball between legs. Using nitrous Comfort Measures: Breathing/Relaxation; Family Support Datetime: 04/30/2019 10:09 Membranes Ruptured Date/Time: 04/30/2019 10:06 Datetime: 04/30/2019 10:06 Membrane Status: Ruptured Membranes Rupture Method: Spontaneous Amniotic Fluid Color: Clear Amniotic Fluid Amount: Small Amniotic Fluid Odor: Normal Datetime: 04/30/2019 08:30 Stage of : Labor MEDICATIONS Pitocin (milliunits): Started @ Datetime: 04/30/2019 08:20 Medication Comments: Consent given for augmentation with Pitocin. Datetime: 04/30/2019 07:48 MATERNAL ASSESSMENT Level of Consciousness: Fully Conscious Headache: Denies Nausea/Vomiting: Denies RUQ Epigastric Pain: Denies Datetime: 04/30/2019 05:36 DTR's/Clonus: DTRs 2+ Breath Sounds, Left: Clear and Equal Breath Sounds, Right: Clear and Equal TEACHING Instructional Method: Verbal Plan of Care: Plan of Care Discussed; Labor Unit Routine: [place] to Room; Call Christina; Bed; Monitoring Labor/Induction: Labor Stages Pain Management: PRN Medications; Pain Scale/Goals; Comfort Measures
--- NOTE | 2019-05-14 20:14 | DISCHARGE SUMMARY ---
Physician: Adrian Henao MD DATE OF ADMISSION: 04/30/2019 DATE OF DISCHARGE: 05/02/2019 ADMITTING DIAGNOSES 1. A 40.5 weeks. 2. Spontaneous labor. 3. Gestational hypertension. DISCHARGE DIAGNOSES 1. A 40.5 weeks. 2. Spontaneous labor. 3. Gestational hypertension. 4. Spontaneous vaginal delivery. 5. Vaginal laceration. PROCEDURES 1. Pitocin augmentation. 2. Epidural spontaneous vaginal delivery. 3. Repair of a left lateral vaginal laceration. PRESENTING HISTORY: Patient is a 28-year-old, she is 3, para 0. She presents with onset of contractions. They became progressively painful with time. Upon admission, her blood pressures were 144/79. She was noted to have 2+ reflexes. Vaginal exam showed her to be 3 cm. She had a category 1 strip. LABORATORIES: CBC on admission showed a white count of 17.4, hemoglobin was 13.1, hematocrit was 38. 9, platelets were 239. Post-delivery, her white count was 20.5, hemoglobin was 12.6, hematocrit was 38.6, platelets were 182. Chemistries were unremarkable. Her creatinine was 0.8 both times. Her ur ine showed a protein creatinine ratio, which was nonreportable. HOSPITAL COURSE: Patient was admitted at which time she had Pitocin augmentation. She had an epidur al placed for labor analgesia. She progressed well and delivered a live male infant with Apgars of 8 and 9. Her course was unremarkable. Her blood pressures normalized. She was discharged home with instructions to followup in the clinic. TD: 05/14/2019 12:54
== END 2019-05-02 11:30 | disposition home or self-care (01) | DRG 807 ==
LOC: WFO 04:19 → FBP 04:20 → WFO 04:57 → UNDOADMIN 04:57 → FBP 04:57 → OBS 05-01 19:07
PROVIDERS: ADMIT Obstetrics & Gynecology; ATTEND Obstetrics & Gynecology
PROC: 10E0XZZ Delivery of Products of Conception, External Approach (ICD-10-PCS; principal; 2019-04-30)
PROC: 0UQG7ZZ Repair Vagina, Via Natural or Artificial Opening (ICD-10-PCS; 2019-04-30)
DX: O13.4 Gestational [pregnancy-induced] hypertension without significant proteinuria, complicating childbirth (principal); Z37.0 Single live birth; O71.4 Obstetric high vaginal laceration alone; O77.0 Labor and delivery complicated by meconium in amniotic fluid; Z3A.40 40 weeks gestation of pregnancy
CPT/HCPCS: 36415; 80053; 82570; 84156; 85025; 99213; A9270; J7120

== ENCOUNTER 2021-05-09 08:00 | Outpatient (CLI) | payer OTHER ==
[2021-05-10 10:51] LABS: BILIRUBIN,URINE NEGATIVE (NEGATIVE); GLUCOSE, URINE (UA) NEGATIVE (NEGATIVE); KETONES,URINE (UA) NEGATIVE (NEGATIVE); LEUKOCYTE ESTERASE, URINE NEGATIVE (NEGATIVE); NITRITE,URINE NEGATIVE (NEGATIVE); OCCULT BLOOD,URINE NEGATIVE (NEGATIVE); PROTEIN,URINE NEGATIVE (NEGATIVE); UROBILINOGEN,URINE 0.2 (NORMAL) E.U./dL (NORMAL)
[2021-05-10 10:59] LABS: CLARITY,URINE CLEAR (CLEAR)
[2021-05-10 11:02] LABS: BACTERIA,URINE Rare /HPF (None Seen); RBC,URINE None Seen /HPF (0-5); SQUAMOUS EPITHELIAL CELL,UR RARE Squamous (<= Few); WBC,URINE 0-3 /HPF (0-5)
== END 2021-05-09 23:59 | disposition home or self-care (01) ==
LOC: LAB.WC 08:00
PROVIDERS: ATTEND Obstetrics & Gynecology
DX: Z36.89 Encounter for other specified antenatal screening (principal); Z32.01 Encounter for pregnancy test, result positive
CPT/HCPCS: 81001; 87086

== ENCOUNTER 2021-05-09 15:26 | Outpatient (CLI) | payer OTHER | END 2021-05-09 15:27 | disposition home or self-care (01) | LOC: LAB 15:26 | PROVIDERS: ATTEND Obstetrics & Gynecology | DX: Z32.01 Encounter for pregnancy test, result positive (principal) | CPT/HCPCS: 36415; 84144; 84702 ==

== ENCOUNTER 2021-05-17 19:04 | Outpatient (CLI) | payer OTHER ==
--- NOTE | 2021-05-18 15:54 | Ultrasound Report ---
PROCEDURE: OB First Trimester w/TV INDICATIONS: POSITIVE TEST OUTSIDE/PRIOR DATING DATA: Last menstrual period (LMP): 06/04/2020. LMP-based estimated date of delivery (FARHAD): 01/09/2022. First dating scan (date and location): 05/17/2021. Estimated date of delivery (FARHAD) from first dating scan: 01/08/2022. TECHNIQUE: Real-time scanning was performed of the fetus and maternal pelvic organs, with image documentation. Endovaginal scanning was also performed to better visualize the fetus and maternal ovaries. COMPARISON: None FINDINGS: Embryo: Single live intrauterine is identified with crown-rump length measuring 5 mm corre sponding to 6 weeks 2 days. Foci of subchorionic hemorrhage are present measuring 1.2 x 0.8 x 1.4 cm and 0.9 x 0.5 x 0.9 cm. Heart rate: 116 bpm. Measurement variability in dating: +/- 4 weeks by LMP, +/- 7 days by mean sac diameter (use before 6 weeks gestation if crown-rump length not able to be measured), +/- 5 days by crown-rump length (6-12 weeks gestation). Maternal organs: Ovaries demonstrate a right corpus luteal cyst.. IMPRESSION: 1. Single live intrauterine with ultrasound gestational age of 6 weeks 2 days. 2. Small foci of subchorionic hemorrhage. Reviewed by: Raine Balderrama MD on 05/18/2021 3:53 PM PST Approved by: Raine Balderrama MD on 05/18/2021 3:53 PM PST Station ID: [id number]
== END 2021-05-17 19:05 | disposition home or self-care (01) ==
LOC: DI 19:04
PROVIDERS: ATTEND Obstetrics & Gynecology
DX: O20.8 Other hemorrhage in early pregnancy (principal); Z3A.01 Less than 8 weeks gestation of pregnancy

== ENCOUNTER 2021-06-14 08:00 | Outpatient (CLI) | payer OTHER ==
[2021-06-15 21:49] LABS: CHLAMYDIA TRACHOMATIS DNA NEGATIVE (NEGATIVE); NEISSERIA GONORRHOEAE DNA NEGATIVE (NEGATIVE); TRICHOMONAS VAGINALIS DNA NEGATIVE (NEGATIVE)
== END 2021-06-14 23:59 | disposition home or self-care (01) ==
LOC: LAB.WC 08:00
PROVIDERS: ATTEND Nurse Practitioner Obstetrics & Gynecology
DX: Z34.90 Encounter for supervision of normal pregnancy, unspecified, unspecified trimester (principal)
CPT/HCPCS: 87491; 87591; 87661

== ENCOUNTER 2021-07-08 09:30 | Outpatient (CLI) | payer OTHER ==
[2021-07-08 10:06] LABS: BASOPHILS # (AUTO) 0.1 10^3/uL (0.0-0.1); BASOPHILS % (AUTO) 0.5 %; EOSINOPHILS # (AUTO) 0.1 10^3/uL (0.0-0.7); HCT - HEMATOCRIT 40.9 % (37.0-47.0); HGB - HEMOGLOBIN 14.1 g/dL (12.0-16.0); LYMPHOCYTES % (AUTO) 20.2 %; MEAN CORPUSCULAR HGB CONC 34.5 g/dL (32.0-36.0); MEAN PLATELET VOLUME 8.5 fL (7.9-10.8); MONOCYTES # (AUTO) 0.6 10^3/uL (0.0-1.0); MONOCYTES % (AUTO) 6.1 %; NEUTROPHILS # (AUTO) 7.2 10^3/uL (1.5-6.6); NEUTROPHILS % (AUTO) 71.8 %; PLT - PLATELET COUNT 216 10^3/uL (130-450); RED BLOOD COUNT 4.87 10^6/uL (4.20-5.40); RED CELL DISTRIBUTION WIDTH 12.5 % (12.0-15.0)
[2021-07-09 11:41] LABS: HEPATITIS C ANTIBODY NON-REACTIVE (NON-REACTIVE)
[2021-07-09 13:42] LABS: HEPATITIS B SURFACE ANTIGEN NON-REACTIVE (NON-REACTIVE)
[2021-07-11 14:25] LABS: HIV AG/AB 4TH GEN NON-REACTIVE (NON-REACTIVE)
== END 2021-07-08 09:31 | disposition home or self-care (01) ==
LOC: LAB 09:30
PROVIDERS: ATTEND Obstetrics & Gynecology
DX: Z36.89 Encounter for other specified antenatal screening (principal)
CPT/HCPCS: 36415; 85025; 86592; 86762; 86787; 86803; 86850; 86900; 86901; 87340; 87389

== ENCOUNTER 2021-08-31 07:30 | Outpatient (CLI) | payer OTHER ==
--- NOTE | 2021-08-31 17:00 | Ultrasound Report ---
PROCEDURE: OB Detailed Eval INDICATIONS: SUPERVISION OF NORMAL OUTSIDE/PRIOR DATING DATA: Last menstrual period (LMP): 04/04/2021. LMP-based estimated date of delivery (FARHAD): 01/09/2022. First dating scan (date and location): 05/17/2021. Estimated date of delivery (FARHAD) from first dating scan: 01/08/2022. TECHNIQUE: Real-time scanning was performed of the fetus, with image documentation and biometric measurements. Endovaginal scanning: No COMPARISON: Ultrasound dated 05/17/2021 FINDINGS: General: A single living intrauterine gestation is present. Presentation: Vertex Placenta: No evidence of placenta previa. Amniotic fluid index: 14 cm heart rate: 152 beats per minute. Maternal cervical canal: 8.9 cm long; normal length is 2.5 cm or more. biometrics: Biparietal diameter: 52 mm; 21 weeks 6 days Head circumference: 192 mm; 21 weeks 3 days Abdominal circumference: 165 mm; 21 weeks 4 days Femur length: 37 mm; 21 weeks 6 days Estimated gestational age from initial scan: 21 weeks 3 days Composite gestational age from present scan: 21 weeks 5 days Estimated weight and percentile: 441 g, which is at the 57th percentile for gestational age Measurement variability in biometric dating: +/- 10 days from 12-20 weeks gestation, +/- 2 weeks from 20-30 weeks gestation, +/- 3 weeks at 30 weeks gestation or later. Anatomic survey: Neuro: Ventricles are normal at less than 10 mm. Cisterna magna is normal at 3-11 mm. Cerebellum i s normal in size and morphology. Nuchal skin fold: Normal at less than 6 mm between 14 and 20 weeks gestational age. Face: Nose and lips, facial profile are normal. Spine: No evidence for spina bifida. Heart: 4-chambered heart is present, with normal ventricular outflow tracts. Diaphragm: Diaphragm is intact. Stomach: Left-sided stomach is present. Kidneys: No hydronephrosis. Normal is less than 5 mm in 2nd trimester, less than 7 mm in 3rd trimester. Cord: 3 vessel cord has orthotopic insertion. Bladder: Normal in size. Extremities: All 4 extremities are visualized. IMPRESSION: 1. Single living intrauterine gestation. 2. Normal survey of anatomy. Reviewed by: Nabil Sims MD on 08/31/2021 4:59 PM PDT Approved by: Nabil Sims MD on 08/31/2021 4:59 PM PDT Station ID: [id number]
== END 2021-08-31 07:31 | disposition home or self-care (01) ==
LOC: DI 07:30
PROVIDERS: ATTEND Nurse Practitioner Obstetrics & Gynecology
DX: Z36.89 Encounter for other specified antenatal screening (principal); Z34.02 Encounter for supervision of normal first pregnancy, second trimester; Z3A.21 21 weeks gestation of pregnancy